=== PATIENT | male | born 1995 | race Two or more races ===

== ENCOUNTER 2019-05-12 14:59 | Emergency (ER) | payer SELFPAY ==
[~2019-05-12] VITALS: Ht 172.7 cm; Wt 72.1 kg
[2019-05-12 15:24] VITALS: BP 160/80
== END 2019-05-12 15:42 | disposition home or self-care (01) ==
LOC: ER 14:59
DX: M54.5 Low back pain (principal); V49.59XA Passenger injured in collision with other motor vehicles in traffic accident, initial encounter; Y93.89 Activity, other specified; Y92.413 State road as the place of occurrence of the external cause; Y99.8 Other external cause status